=== PATIENT | male | born 1960 | race Caucasian/White ===

== ENCOUNTER → 2023-02-02 | Outpatient (CLI) | payer BC, SELFPAY ==
--- NOTE | 2023-02-02 13:56 | MRI_ITS ---
STUDY: MRI BRAIN WITH AND WITHOUT CONTRAST REASON FOR EXAM: Male, 62 years old. OPTIC NERVE EDEMA TECHNIQUE: Standardized multiplanar fat and water weighted pulse sequences were obtained. 20cc clariscan was administered for the contrast portion of the examination. COMPARISON: None. FINDINGS: Small [id number] high-resolution images of the orbits are unremarkable including the optic nerves. There is mild cerebral atrophy with widening of the extra-axial spaces and ventricular dilatation. Normal white matter tracts of the supratentorial brain. Normal bilateral basal ganglia. Normal thalami. There is no extra-axial fluid accumulation. Normal flow voids within the major intracranial circulation suggesting patency by spin echo criteria. Normal venous enhancement. There is no enhancing intra-axial or extra-axial abnormality. Normal sella turcica, pituitary gland, infundibular stalk, optic chiasm and hypothalamus. Normal tectal plate and pineal gland. Normal midbrain, shital and medulla. Normal cerebellum. Normal basal cisterns. Normal bilateral temporal bones. Normal bilateral internal auditory canals. No demonstrated orbital abnormality, within the constraints of a routine brain study. Normal visualized paranasal sinuses. Normal calvarium and skull base. Normal visualized soft tissue structures. Normal visualized upper cervical spine. MRI/Brain W/WO Contrast IMPRESSION: Normal unenhanced and enhanced MRI of the brain and orbits. Electronically Signed: Jonathon Damon MD at 23:12 EST ,
--- NOTE | 2023-02-02 14:00 | RAD_ITS ---
STUDY: X-RAY - ORBITS REASON FOR EXAM: Male, 62 years old. MRI CLEARANCE TECHNIQUE: 2 view(s) of the orbits were obtained. COMPARISON: None. FINDINGS: Normal bilateral orbits without a metallic orbital foreign body. Normal visualized facial bones. Normal paranasal sinuses. The soft tissue structures are unremarkable. RAD/Orbits for Foreign Body IMPRESSION: No demonstrated metallic orbital foreign body. The patient is cleared for an MRI examination. Electronically Signed: José Navarro MD at 14:24 EST ,
[2023-02-02 14:49] LABS: CREATININE FINGERSTICK < 1.0 mg/dL (0.70-1.30); EGFR FINGERSTICK > 60.0000 mL/min (>60)
== END | disposition home or self-care (01) ==
PROVIDERS: PCP Family Medicine; Referring Provider Ophthalmology; Visit Provider Ophthalmology
DX: H47.092 Other disorders of optic nerve, not elsewhere classified, left eye (principal)
CPT/HCPCS: 70030; 70553; A9575

== ENCOUNTER → 2023-02-06 | Outpatient (CLI) | payer BC, SELFPAY ==
--- NOTE | 2023-02-06 12:45 | CDU_ITS ---
Reason For Study: Other disorders of optic nerve Rt. Velocities/BP Lt. Velocities/BP Prox CCA 80.6/18.2 cm/sec. Prox CCA 93.8/19.2 cm/sec. Mid CCA 72.1/15.4 cm/sec. Mid CCA 66.4/17.3 cm/sec. Dist CCA 52.2/14.5 cm/sec. Dist CCA 50/13.3 cm/sec. Prox ICA 51.3/18.2 cm/sec. Prox ICA 51.3/18.2 cm/sec. Mid ICA 41.3/16.8 cm/sec. Mid ICA 57.9/22 cm/sec. Dist ICA 44.7/16.8 cm/sec. Dist ICA 55.1/23 cm/sec. Rt. ICA/CCA = 0.71. Lt. ICA/CCA = 0.87. Prox ECA 122.9/20.6 cm/sec. Prox ECA 104.7/14.6 cm/sec. Rt. Vert. 34.3/11.6 cm/sec. Lt. Vert. 27.9/10.2 cm/sec. Right Extracranial There is homogeneous, smooth atherosclerotic plaque noted in the right common carotid artery. There is homogeneous, smooth atherosclerotic plaque noted in the right internal carotid artery. There is intimal thickening but no significant atherosclerotic plaque noted in the right external carotid artery. Antegrade flow is noted in the right vertebral artery. Left Extracranial There is homogeneous, smooth atherosclerotic plaque noted in the left common carotid artery. There is heterogeneous, irregular atherosclerotic plaque noted in the left internal carotid artery. There is intimal thickening but no significant atherosclerotic plaque noted in the left external carotid artery. Antegrade flow is noted in the left vertebral artery. Procedure Carotid Duplex 42950. This is a Carotid Duplex examination using B-mode, color flow and specral Doppler. Exam performed in department. VL/Carotid Duplex Ultrasound Interpretation Summary Mild (<50%) stenosis right extracranial internal carotid. Mild (<50%) stenosis left extracranial internal carotid. Flow within the vertebral arteries is antegrade bilaterally. Ordering Physician: Narinder Gilman Referring Physician: An Browning Performed By: Jia Gruber RVT
== END | disposition home or self-care (01) ==
LOC: CVS 12:43
PROVIDERS: PCP Family Medicine; Referring Provider Ophthalmology; Visit Provider Ophthalmology
DX: H47.092 Other disorders of optic nerve, not elsewhere classified, left eye (principal)
CPT/HCPCS: 93880